=== PATIENT | male | born 1995 | race Hispanic/Latino ===

== ENCOUNTER 2019-01-15 11:46 | Emergency (ER) | payer BC, OTHER | END 2019-01-15 14:10 | disposition home or self-care (01) | LOC: EDH 11:46 | DX: S61.230A Puncture wound without foreign body of right index finger without damage to nail, initial encounter (principal); W46.0XXA Contact with hypodermic needle, initial encounter; Y93.89 Activity, other specified; Y92.238 Other place in hospital as the place of occurrence of the external cause; Y99.8 Other external cause status | CPT/HCPCS: 36415; 82172; 82247; 82977; 83010; 83883; 84460; 86701; 87390; 87517 ==